=== PATIENT | male | born 1985 | race Caucasian/White ===

== ENCOUNTER 2022-07-25 12:36 | Outpatient (REF) | payer OTHER, SELFPAY ==
--- NOTE | ~2022-07-25 | XR_ITS ---
EXAMINATION: PRE-MRI ORBITS CLINICAL INFORMATION: History of foreign body And the child. COMPARISON: None TECHNIQUE: 3 views. FINDINGS: There are no radiopaque foreign body seen in the orbits. The paranasal sinuses and mastoid air cells are well-aerated. The bony orbits and the sinuses are intact. The soft tissues are normal. XR/XR pre mri screening IMPRESSION: No radiopaque foreign body seen in the orbits.
--- NOTE | ~2022-07-25 | MR_ITS ---
EXAMINATION: MR BRAIN WITHOUT AND WITH CONTRAST CLINICAL INFORMATION: 36-year-old with history of epilepsy in the past, now with feeling of aura. COMPARISON: None TECHNIQUE: Multiplanar, multisequence MRI of the brain was obtained before and after the intravenous administration of 9 mL Gadavist. FINDINGS: Brain Volume: Aside from focal regional encephalomalacia in the left parietal lobe, the remainder of the brain demonstrates mild diffuse supratentorial brain parenchymal volume loss within the limitations of a qualitative assessment. Structural: Small cavum septum pellucidum and cavum vergae noted, normal variant. Brain and Meninges: DWI sequence demonstrates no restricted diffusion to suggest acute or subacute cerebral ischemia. There is a somewhat wedge-shaped region of encephalomalacia involving the left perirolandic region including the pre and postcentral gyrus and superior parietal lobule with associated parenchymal gliosis consistent with this. A few tiny zones of susceptibility-weighted signal loss are seen along the anterior margin of this region of encephalomalacia, which may reflect dystrophic calcification or hemosiderin staining from remote hemorrhage. Recommend correlation with clinical history. There is no associated abnormal enhancement. The remainder of the brain is normal in signal intensity throughout, with no evidence for pathologic intracranial enhancement. Note that the lateral aspect of the right temporal lobe is partially obscured by wraparound artifact on the T1-weighted images. Ventricles and Subarachnoid Spaces: No hydrocephalus identified. Mild asymmetry of the lateral ventricles is noted, which is likely developmental. Figueroa-white matter interface is preserved outside of the region of encephalomalacia. The mesial temporal lobe structures are bilaterally symmetric and are normal in morphology and signal. Orbital Structures: The visualized orbital structures are grossly unremarkable within the limitations of the study. Vascular: Signal voids are noted in the visualized major intracranial vessels. Osseous Structures, Sinuses/Mastoids, Extracranial Soft Tissues: There is thinning of the left parietal calvarium, with what appears to be a defect of the bony calvarium traversing the left frontoparietal region. Correlate with the patient's clinical history. Otherwise, bone marrow signal intensity appears within normal limits. There is sinusoidal nasal septal deviation. 1 cm retention cyst in the right frontal sinus with mild mucosal thickening in the left frontal sinus and ethmoid complex. Mildly prominent adenoids are noted, likely reactive. MR/MR head/brain wo/w con IMPRESSION: 1. Focal regional encephalomalacia involving the left perirolandic region and superior parietal lobule with no abnormal enhancement. Correlate with clinical history. 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 2. No acute intracranial process. No intracranial mass lesions or pathologic intracranial enhancement, with a normal appearance to the mesial temporal lobe structures. 3. Sinonasal findings as discussed above and prominent adenoids, likely reactive.
== END 2022-07-25 12:37 | disposition home or self-care (01) ==
LOC: HO.MRI 12:36
PROVIDERS: Visit Provider Psychiatry & Neurology Neurology
DX: G40.909 Epilepsy, unspecified, not intractable, without status epilepticus (principal)
CPT/HCPCS: 70553; A9585